=== PATIENT | male | born 1940 | race Caucasian/White ===

== ENCOUNTER → 2019-07-10 08:19 | Outpatient (CLI) | payer MEDICARE, BC ==
[2019-07-10 09:31] LABS: BASOPHILS 0.2 % (0-2); EOSINOPHILS 1.9 % (0-7); HEMATOCRIT 40.6 % (42.0-54.0); HEMOGLOBIN 13.5 g/dL (13.5-17.5); IMMATURE GRANULOCYTES 0.2 % (0-5); LYMPHOCYTES 42.6 % (15-50); MCH 29.4 pg (26.0-34.0); MCHC 33.3 g/dL (31.0-37.0); MCV 88.5 fL (80.0-100.0); MEAN PLATELET VOLUME 9.5 fL (7.4-10.4); MONOCYTES 7.9 % (2-11); NEUTROPHILS 47.2 % (40-80); PLATELET COUNT 214 10x3/uL (130-400); RBC 4.59 10x6/uL (4.20-6.10); RDW 13.2 % (11.5-14.5); WBC 4.3 10x3/uL (4.8-10.8)
[2019-07-11 10:10] LABS: IMMUNOGLOBULIN A 260 mg/dL (61-437); IMMUNOGLOBULIN G 1010 mg/dL (700-1600); IMMUNOGLOBULIN M 84 mg/dL (15-143)
[2019-07-13 09:10] LABS: IMMUNOGLOBULIN E 57 IU/mL (6-495)
== END | disposition home or self-care (01) ==
LOC: D.LAB 08:19 → D.RT 09:00
PROVIDERS: ATTEND Internal Medicine Pulmonary Disease
DX: J47.9 Bronchiectasis, uncomplicated (principal)